=== PATIENT | female | born 1980 | race Caucasian/White ===

== ENCOUNTER 2016-07-31 20:14 | Emergency (ER) | payer SELFPAY ==
[~2016-07-31] VITALS: Ht 172.7 cm; Wt 76.5 kg
[~2016-07-31 20:14] MED LIST: MACR100C2 PO; PERC10TA27 PO
[2016-07-31 20:46] VITALS: BP 105/74; PULSE 75; RESP 16; TEMP 98.8; O2SAT 98
--- NOTE | 2016-07-31 21:24 | PD ---
HPI Chief Complaint: Bite or Sting Time Seen by Provider: 21:23 Travel History International Travel<30 days: No Contact w/Intl Traveler<30days: No Traveled to known affect area: No History of Present Illness HPI 36-year-old female presents to the emergency Department with complaint of a red spot to the back of her left ankle 5 days and a red spot to the back of her right ankle 3 days. Reports the areas are itchy. Thought that she was bit by a mosquito. Has tried [id number] topical ointments with no relief of itching. Denies fever, chills, nausea, vomiting. Denies paresthesias, loss of sensation, decreased range of motion, decreased strength bilateral lower extremity is. Denies red spots anywhere else. Denies rash. Aggravating or relieving factors. No known allergies. Doesn't have primary care. No other modifying factors or signs and symptoms. PFSH Past Medical History Anxiety: Yes Diminished Hearing: No Herniated Disk: Yes (C4-C5, C5-C6, and lumbar ) Migraines: Yes Tetanus Vaccination: < 5 Years Influenza Vaccination: No ?: Not LMP: 07/30/16 : 2 Para: 1 : 1 Ovarian Cysts: Yes Dilation and Curettage (D&C): Yes Past Surgical History Gynecologic Surgery: Yes (Laparoscopy X's 4 R/T ovarian cysts) Oral Surgery: Yes ([place] teeth) Tonsillectomy: Yes Other Surgery: Yes (Deviated septum ) Social History Alcohol Use: No Tobacco Use: Yes (<1 PPD) Substance Use: No Allergies-Medications (Allergen,Severity, Reaction): Coded Allergies: No Known Allergies (Unverified , 07/31/16) Reported Meds & Prescriptions Reported Meds & Active Scripts Active Reported Percocet (Oxycodone-Acetaminophen) 10-325 mg Tab 1 Tab PO QID Review of Systems Except as stated in HPI: all other systems reviewed are Neg Physical Exam Narrative GENERAL: Well-nourished, well-developed female patient, in no acute distress SKIN: Warm and dry. Bilateral posterior ankles with small approximately 1 cm in diameter reddened, flat areas. Areas are consistent to where her shoes could have rubbed her ankles. Bilateral lower extremities are supple and non- tense with 2+ pedal pulses and sensory intact with full range of motion and strength; without erythema or edema. HEAD: Atraumatic. Normocephalic. EYES: Pupils equal and round. Pinpoint pupils. No scleral icterus. No injection or drainage. ENT: Mucosa pink and moist. Airway patent. NECK: Trachea midline. CARDIOVASCULAR: Regular rate. RESPIRATORY: No accessory muscle use. GASTROINTESTINAL: Flat. MUSCULOSKELETAL: No obvious deformities. No clubbing. No cyanosis. No edema. NEUROLOGICAL: Awake and alert. Oriented 3. No obvious cranial nerve deficits. Motor grossly within normal limits. Normal speech. PSYCHIATRIC: Appropriate mood and affect; insight and judgment normal. Data Data Last Documented VS Vital Signs Date Time Temp Pulse Resp B/P Pulse Ox O2 Delivery O2 Flow Rate FiO2 07/31/16 20:46 98.8 75 16 105/74 98 MDM Medical Decision Making Medical Screen Exam Complete: Yes Emergency Medical Condition: No Medical Record Reviewed: Yes Differential Diagnosis Medical clearance, nonspecific lesions, abrasions Narrative Course 36-year-old female with 2 small erythemic areas to the back of her ankles that appeared to be consistent with irritation from her shoes. No emergent medical complaints at this time. Vital signs are stable and the patient is stable for outpatient follow-up and treatment. The patient has no urgent or emergent medical complaints. There is no emergent or urgent medical need at this time. I instructed the patient to follow up with their primary care provider. A medical screening exam was performed: At the time of evaluation the presenting medical condition was determined not to be of an emergent nature. The patient was given the option of receiving additional care, but declined. Patient was given options for additional community resources from which to obtain care. The Patient Has Been advised to seek medical attention for their presenting complaint. The patient has been advised to return to the ER at any time if an emergent condition develops. Diagnosis Primary Impression: Encounter for medical screening examination Condition: Stable Nancy Mae Jul 31, 2016 21:24
== END 2016-07-31 21:47 | disposition left against medical advice (07) ==
LOC: PHEFT 20:14
DX: R23.8 Other skin changes (principal); F17.200 Nicotine dependence, unspecified, uncomplicated; Z87.39 Personal history of other diseases of the musculoskeletal system and connective tissue; Z86.69 Personal history of other diseases of the nervous system and sense organs
CPT/HCPCS: 99281

== ENCOUNTER 2016-11-23 12:26 | Emergency (ER) | payer SELFPAY ==
[~2016-11-23] VITALS: Ht 167.6 cm; Wt 74.0 kg
[~2016-11-23 12:26] MED LIST changes: -MACR100C2 PO
[2016-11-23 12:32] VITALS: BP 131/82; PULSE 106; RESP 16; TEMP 97.7; O2SAT 98
[2016-11-23] MEDS ORDERED: SODIUM CHLOR 0.9% 1000 ML INJ 1,000 ML IV ONE (13:00)
[2016-11-23] MEDS ORDERED: KETOROLAC TROMETHAMINE 30 MG/ML (IVP) VIAL IV PUSH ONE (13:00)
[2016-11-23] MEDS ORDERED: METH10TA PO (13:18)
[2016-11-23 13:21] LABS: BASOPHIL # 0.1 TH/MM3 (0-0.2); BASOPHIL % 0.9 % (0.0-2.0); EOSINOPHIL # 0.3 TH/MM3 (0-0.4); EOSINOPHIL % 2.7 % (0.0-4.0); HEMATOCRIT 41.5 % (35.0-46.0); HEMO FLAGS DIFF FINAL; LYMPH % 19.6 % (9.0-44.0); MEAN CELL VOLUME 92.4 FL (80.0-100.0); MEAN CORPUSCULAR HEMOGLOBIN 31.9 PG (27.0-34.0); MEAN CORPUSCULAR HGB CONC 34.5 % (32.0-36.0); NEUT % 69.8 % (16.0-70.0); PLATELET COUNT 251 TH/MM3 (150-450); RED BLOOD COUNT 4.49 MIL/MM3 (4.00-5.30); RED CELL DISTRIBUTION WIDTH 12.9 % (11.6-17.2); WHITE BLOOD COUNT 10.1 TH/MM3 (4.0-11.0)
[2016-11-23 13:30] LABS: CHLORIDE 104 MEQ/L (98-107); POTASSIUM 3.6 MEQ/L (3.5-5.1); SODIUM (NA) 140 MEQ/L (136-145)
[2016-11-23 13:33] LABS: ANION GAP 9 MEQ/L (5-15); BICARBONATE 27.1 MEQ/L (21.0-32.0)
[2016-11-23 13:34] LABS: BLOOD UREA NITROGEN 8 MG/DL (7-18)
[2016-11-23 13:36] LABS: ALT (GPT) 22 U/L (10-53)
[2016-11-23 13:37] LABS: AST (GOT) 12 U/L (15-37); GLOMERULAR FILTRATION RATE 86 ML/MIN (>89)
[2016-11-23 13:38] LABS: TOTAL BILIRUBIN ADULT 0.3 MG/DL (0.2-1.0)
[2016-11-23 13:40] LABS: ALKALINE PHOSPHATASE 78 U/L (45-117)
[2016-11-23 14:00] VITALS: BP 117/80; PULSE 82; RESP 18; O2SAT 99
[2016-11-23 14:13] LABS: BLOOD, URINE NEG (NEG); GLUCOSE,URINE NEG (NEG); KETONE, URINE NEG (NEG); NITRITE,URINE NEG (NEG)
[2016-11-23 14:25] LABS: METHOD OF COLLECTION CLEAN CATCH; URINE COLOR YELLOW (YELLW/STRAW)
[2016-11-23 14:26] LABS: COMMENT (UR) CULT NOT INDICATED; CULTURE IF INDICATED CULT NOT INDICATED; SQUAMOUS EPITHELIAL CELL URINE 0-5 /hpf (0-5)
[2016-11-23 15:15] VITALS: BP 118/84; PULSE 77; RESP 18; O2SAT 98
--- NOTE | 2016-11-23 15:31 | PD ---
HPI Chief Complaint: Refuse Laborer Problem/Complaint Time Seen by Provider: 12:40 Travel History International Travel<30 days: No Contact w/Intl Traveler<30days: No Traveled to known affect area: No History of Present Illness HPI Patient is a 36-year-old female comes in complaining of lower abdominal pain for the past 2 weeks. She says that recently the pain has gotten worse, specifically she has burning after sexual intercourse and after urination. She also complains of vaginal discharge for about the past week. She denies fever or chills. She has not had nausea or vomiting. She says she is currently weaning herself off of methadone, but does not believe that these are withdrawal symptoms. PFSH Past Medical History Anxiety: Yes Diminished Hearing: No Herniated Disk: Yes (C4-C5, C5-C6, and lumbar ) Migraines: Yes Tetanus Vaccination: > 5 Years Influenza Vaccination: No ?: Not LMP: 11/05/16 : 2 Para: 1 : 1 Ovarian Cysts: Yes Dilation and Curettage (D&C): Yes Past Surgical History Gynecologic Surgery: Yes (Laparoscopy X's 4 R/T ovarian cysts) Oral Surgery: Yes ([place] teeth) Tonsillectomy: Yes Other Surgery: Yes (Deviated septum ) Social History Alcohol Use: No Tobacco Use: Yes (<1 PPD) Substance Use: No Allergies-Medications (Allergen,Severity, Reaction): Coded Allergies: No Known Allergies (Unverified , 11/23/16) Reported Meds & Prescriptions Reported Meds & Active Scripts Active Reported Methadone (Methadone HCl) 10 Mg Tab 10 Mg PO DAILY Review of Systems Except as stated in HPI: all other systems reviewed are Neg General / Constitutional: No: Fever, Chills Cardiovascular: No: Chest Pain or Discomfort Respiratory: No: Shortness of Breath Gastrointestinal: Positive: Abdominal Pain, No: Nausea, Vomiting Genitourinary: Positive: Dysuria Musculoskeletal: No: Pain Skin: No Rash, No Change in Pigmentation Neurologic: No: Weakness, Dizziness Physical Exam Narrative GENERAL: Awake and alert, in no acute distress. SKIN: Focused skin assessment warm/dry. HEAD: Atraumatic. Normocephalic. EYES: Pupils equal and round. No scleral icterus. ENT: Mucous membranes pink and moist. NECK: Trachea midline. No JVD. CARDIOVASCULAR: Regular rate and rhythm. No murmur appreciated. RESPIRATORY: No accessory muscle use. Clear to auscultation. Breath sounds equal bilaterally. GASTROINTESTINAL: Abdomen soft, nondistended. Tenderness across the lower abdomen. No rebound or guarding. CVA tenderness. : Pelvic exam performed in the presence of female nurse. There is a thin white discharge from the os. Cervix has no lesions. Mild tenderness to palpation of the right adnexa as well as the cervix. No CMT. MUSCULOSKELETAL: No obvious deformities. No clubbing. No cyanosis. No edema. NEUROLOGICAL: Awake and alert. No obvious cranial nerve deficits. Motor grossly within normal limits. Normal speech. PSYCHIATRIC: Appropriate mood and affect; insight and judgment normal. Data Data Last Documented VS Vital Signs Date Time Temp Pulse Resp B/P Pulse Ox O2 Delivery O2 Flow Rate FiO2 11/23/16 14:00 82 18 117/80 99 Room Air 11/23/16 12:32 97.7 Orders Urinalysis - C+S If Indicated (11/23/16 12:36) Ed Urine Pregnancytest Poc (11/23/16 12:36) Complete Blood Count With Diff (11/23/16 12:51) Comprehensive Metabolic Panel (11/23/16 12:51) Wet Prep Profile (11/23/16 12:51) Gc And Chlamydia Pcr (11/23/16 12:51) Sodium Chlor 0.9% 1000 Ml Inj (Ns 1000 M (11/23/16 13:00) Ketorolac Inj (Toradol Inj) (11/23/16 13:00) Us Pelvis Comp W Dop Transvag (11/23/16 ) Labs Laboratory Tests Test 11/23/16 11/23/16 13:00 14:00 White Blood Count 10.1 TH/MM3 Red Blood Count 4.49 MIL/MM3 Hemoglobin 14.3 GM/DL Hematocrit 41.5 % Mean Corpuscular Volume 92.4 FL Mean Corpuscular Hemoglobin 31.9 PG Mean Corpuscular Hemoglobin 34.5 % Concent Red Cell Distribution Width 12.9 % Platelet Count 251 TH/MM3 Mean Platelet Volume 7.7 FL Neutrophils (%) (Auto) 69.8 % Lymphocytes (%) (Auto) 19.6 % Monocytes (%) (Auto) 7.0 % Eosinophils (%) (Auto) 2.7 % Basophils (%) (Auto) 0.9 % Neutrophils # (Auto) 7.0 TH/MM3 Lymphocytes # (Auto) 2.0 TH/MM3 Monocytes # (Auto) 0.7 TH/MM3 Eosinophils # (Auto) 0.3 TH/MM3 Basophils # (Auto) 0.1 TH/MM3 CBC Comment DIFF FINAL Differential Comment Clue Cells (Wet Prep) NONE SEEN Vaginal Trichomonas (Wet Prep) NONE SEEN Vaginal Yeast (Wet Prep) NONE SEEN Sodium Level 140 MEQ/L Potassium Level 3.6 MEQ/L Chloride Level 104 MEQ/L Carbon Dioxide Level 27.1 MEQ/L Anion Gap 9 MEQ/L Blood Urea Nitrogen 8 MG/DL Creatinine 0.76 MG/DL Estimat Glomerular Filtration 86 ML/MIN Rate Random Glucose 120 MG/DL Calcium Level 8.9 MG/DL Total Bilirubin 0.3 MG/DL Aspartate Amino Transf 12 U/L (AST/SGOT) Alanine Aminotransferase 22 U/L (ALT/SGPT) Alkaline Phosphatase 78 U/L Total Protein 7.0 GM/DL Albumin 3.9 GM/DL Urine Collection Type CLEAN CATCH Urine Color YELLOW Urine Turbidity CLEAR Urine pH 6.0 Urine Specific [place] 1.005 Urine Protein NEG mg/dL Urine Glucose (UA) NEG mg/dL Urine Ketones NEG mg/dL Urine Occult Blood NEG Urine Nitrite NEG Urine Bilirubin NEG Urine Leukocyte Esterase NEG Urine Squamous Epithelial 0-5 /hpf Cells Microscopic Urinalysis Comment CULT NOT INDICATED Urine Collection Time 14:00 [facility] Medical Decision Making Medical Screen Exam Complete: Yes Emergency Medical Condition: Yes Medical Record Reviewed: Yes Differential Diagnosis UTI versus pyelonephritis versus ovarian cyst versus GC/chlamydia versus bacterial vaginosis Narrative Course Patient is a 36-year-old female comes in complaining of lower abdominal pain. Exam shows tenderness across the lower abdomen. Labs sent. Patient refused IV as well as fluids and pain medicine. Abscess in no acute abnormalities. Wet prep is negative for any abnormalities. Swab sent to test for GC and chlamydia. Ultrasound of the pelvis performed, shows no acute findings. Patient advised to follow up with pediatric genetic counselor. Advised to take Ibuprofen as needed for pain, drink plenty of fluids. Return to the ED as needed for any worsening symptoms. Diagnosis Primary Impression: Abdominal pain Qualified Code: R10.30 - Lower abdominal pain Patient Instructions: Abdominal Pain (ED), General Instructions Additional Instructions: Follow up with pediatric genetic counselor. Take Tylenol or Ibuprofen as needed for pain. Drink plenty of fluids. Return to the ED as needed for any worsening symptoms. Disposition: 01 DISCHARGE HOME Condition: Stable Ale Huggins MD Nov 23, 2016 15:31
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
[2016-11-23 18:09] LABS: CHLAMYDIA PCR NOT DETECTED (NOT DETECT); NEISSERIA PCR NOT DETECTED (NOT DETECT)
== END 2016-11-23 16:04 | disposition home or self-care (01) ==
LOC: PHED 12:26
DX: R10.30 Lower abdominal pain, unspecified (principal); F17.210 Nicotine dependence, cigarettes, uncomplicated
CPT/HCPCS: 76830; 76856; 80053; 81001; 84703; 85025; 87210; 87491; 87591; 93975

== ENCOUNTER 2016-11-28 14:17 | Emergency (ER) | payer OTHER ==
[~2016-11-28] VITALS: Ht 170.2 cm; Wt 73.0 kg
[~2016-11-28 14:17] MED LIST changes: +METH10TA PO; -PERC10TA27 PO
[2016-11-28 14:19] VITALS: BP 129/89; PULSE 120; RESP 22; TEMP 98.7; O2SAT 99
[2016-11-28 14:28] VITALS: O2SAT 95
[2016-11-28] MEDS ORDERED: OXYC15TA PO (14:30)
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
[2016-11-28 15:08] LABS: AUTOMATED NEUTROPHIL # 7.1 TH/MM3 (1.8-7.7); BASOPHIL # 0.1 TH/MM3 (0-0.2); BASOPHIL % 0.5 % (0.0-2.0); EOSINOPHIL # 0.2 TH/MM3 (0-0.4); EOSINOPHIL % 1.7 % (0.0-4.0); HEMATOCRIT 43.3 % (35.0-46.0); HEMO FLAGS DIFF FINAL; LYMPH % 29.3 % (9.0-44.0); LYMPHOCYTE # 3.4 TH/MM3 (1.0-4.8); MEAN CELL VOLUME 91.3 FL (80.0-100.0); MEAN CORPUSCULAR HEMOGLOBIN 31.5 PG (27.0-34.0); MEAN CORPUSCULAR HGB CONC 34.5 % (32.0-36.0); MONO % 8.1 % (0.0-8.0); NEUT % 60.4 % (16.0-70.0); PLATELET COUNT 273 TH/MM3 (150-450); RED BLOOD COUNT 4.74 MIL/MM3 (4.00-5.30); RED CELL DISTRIBUTION WIDTH 13.6 % (11.6-17.2); WHITE BLOOD COUNT 11.7 TH/MM3 (4.0-11.0)
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
[2016-11-28 15:34] LABS: ALKALINE PHOSPHATASE 80 U/L (45-117); TOTAL BILIRUBIN ADULT 0.4 MG/DL (0.2-1.0)
[2016-11-28 15:55] LABS: ALT (GPT) 23 U/L (10-53); ANION GAP 9 MEQ/L (5-15); AST (GOT) 33 U/L (15-37); BICARBONATE 23.9 MEQ/L (21.0-32.0); BLOOD UREA NITROGEN 11 MG/DL (7-18); CHLORIDE 106 MEQ/L (98-107); GLOMERULAR FILTRATION RATE 69 ML/MIN (>89); SODIUM (NA) 139 MEQ/L (136-145)
[2016-11-28 15:57] LABS: INTERNATIONAL NORMALIZED RATIO 1.1 RATIO
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
[2016-11-28] MEDS ORDERED: IOHEXOL 350 MG/ML 10 ML VIAL (for RAD DIAG) IV ONE (16:46)
[2016-11-28 17:00] VITALS: BP 142/77; PULSE 93; O2SAT 98
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
[2016-11-28] MEDS ORDERED: CYCL1TAB29 PO (17:49)
[2016-11-28] MEDS ORDERED: MOBI15TA PO (17:49)
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
[2016-11-28] MEDS ORDERED: KETOROLAC TROMETHAMINE 60 MG/2 ML (IM) VIAL IM ONE (18:00)
[2016-11-28] MEDS ORDERED: ORPHENADRINE INJ 60 MG/2 ML AMP IM ONE (18:00)
== END 2016-11-28 18:47 | disposition home or self-care (01) ==
LOC: NEPC 14:17
DX: S09.90XA Unspecified injury of head, initial encounter (principal); S16.1XXA Strain of muscle, fascia and tendon at neck level, initial encounter; S29.012A Strain of muscle and tendon of back wall of thorax, initial encounter; S39.012A Strain of muscle, fascia and tendon of lower back, initial encounter; M79.602 Pain in left arm; R07.9 Chest pain, unspecified; V49.40XA Driver injured in collision with unspecified motor vehicles in traffic accident, initial encounter
CPT/HCPCS: 70450; 71010; 71260; 72125; 72128; 72131; 72170; 73060; 73090; 74177; 80053; 83690; 84703; 85025; 85610; 85730; 96372; 99284; J1885; J2360; L0150; Q9967

== ENCOUNTER 2017-10-16 15:07 | Emergency (ER) | payer SELFPAY ==
[~2017-10-16] VITALS: Ht 172.7 cm; Wt 92.0 kg
[~2017-10-16 15:07] MED LIST changes: +CYCL10TA PO; -METH10TA PO; +MOBI15TA PO; +OXYC15TA PO
[2017-10-16 16:02] VITALS: BP 160/87; PULSE 84; RESP 16; TEMP 98; O2SAT 99
[2017-10-16] MEDS ORDERED: BACT800T5 PO (17:18)
--- NOTE | 2017-10-16 17:19 | PD ---
HPI Chief Complaint: Skin Problem Time Seen by Provider: 16:47 Travel History International Travel<30 days: No Contact w/Intl Traveler<30days: No Traveled to known affect area: No History of Present Illness HPI This is a 37-year-old female here with a skin infection to her pubic hair region times one week. She denies fever or chills. She reports symptoms began after she used an old razor. Symptom severity is moderate. No aggravating factors. Symptoms unrelieved by OTC cortisone, antibiotic ointment, or Benadryl. PFSH Past Medical History Medical History: Denies Significant Hx Anxiety: Yes Diminished Hearing: No Herniated Disk: Yes (C4-C5, C5-C6, and lumbar/LEAKING) Musculoskeletal: Yes Psychiatric: Yes Migraines: Yes ?: Not : 2 Para: 1 : 1 Ovarian Cysts: Yes Dilation and Curettage (D&C): Yes Past Surgical History Gynecologic Surgery: Yes (Laparoscopy X's 4 R/T ovarian cysts) Oral Surgery: Yes ([place] teeth) Tonsillectomy: Yes Other Surgery: Yes (Deviated septum ) Social History Alcohol Use: No Tobacco Use: Yes (<1 PPD) Substance Use: No Allergies-Medications (Allergen,Severity, Reaction): Coded Allergies: No Known Allergies (Unverified Adverse Reaction, Unknown, 10/16/17) Reported Meds & Prescriptions Reported Meds & Active Scripts Active Flexeril (Cyclobenzaprine HCl) 10 Mg Tab 10 Mg PO TID Mobic (Meloxicam) 15 Mg Tab 15 Mg PO DAILY Reported Oxycodone (Oxycodone HCl) 15 Mg Tab 15 Mg PO Q6HR Review of Systems Except as stated in HPI: all other systems reviewed are Neg General / Constitutional: No: Fever Eyes: No: Visual changes HENT: No: Headaches Cardiovascular: No: Chest Pain or Discomfort Respiratory: No: Shortness of Breath Gastrointestinal: No: Abdominal Pain Genitourinary: No: Dysuria Musculoskeletal: No: Pain Skin: Positive Rash Neurologic: No: Weakness Physical Exam Narrative GENERAL: Alert well-appearing 37-year-old female SKIN: Numerous pustules and scabbed lesions over her pubic hair region. No induration, fluctuance or surrounding cellulitis. HEAD: Normocephalic. EYES: No injection or drainage. NECK: Supple MUSCULOSKELETAL: No cyanosis, or edema. Data Data Last Documented VS Vital Signs Date Time Temp Pulse Resp B/P (MAP) Pulse Ox O2 Delivery O2 Flow Rate FiO2 10/16/17 16:02 98.0 84 16 160/87 (111) 99 MDM Medical Decision Making Medical Screen Exam Complete: Yes Emergency Medical Condition: Yes Differential Diagnosis Folliculitis, abscess, cellulitis Narrative Course 37-year-old female here with folliculitis. She is well-appearing. She'll be treated with Keflex. Encouraged to use antibacterial soap and no shaving until skin lesions resolved Diagnosis Primary Impression: Folliculitis Referrals: Primary Care Physician Additional Instructions: No shaving until lesions resolved. Use antibacterial soap such as Dial. Antibiotics as directed. Scripts Sulfamethoxazole-Trimethoprim (Bactrim DS) 800-160 Mg Tab 1 TAB PO BID for Infection, #20 TAB 0 Refills Prov: Nicol Rudolph 10/16/17 Disposition: 01 DISCHARGE HOME Condition: Stable Nicol Rudolph Oct 16, 2017 17:19
== END 2017-10-16 17:46 | disposition home or self-care (01) ==
LOC: PHEFT 15:07
DX: L73.9 Follicular disorder, unspecified (principal); F17.210 Nicotine dependence, cigarettes, uncomplicated; Z79.899 Other long term (current) drug therapy
CPT/HCPCS: 84703; 99283